=== PATIENT | female | born 1965 | race Caucasian/White ===

== ENCOUNTER → 2018-01-04 10:03 | Outpatient (CLI) | payer MEDICAID ==
[2015-07-21 09:43] VITALS: BMI 34.2
[~2018-01-04 10:03] MED LIST: ADVIL200 MG PO; BUSPAR 15 MG TA15 MG PO; CELEXA40 MG PO; DALIRESP500 MCG PO; FLUTICASONE PRO16 GM NASAL; HYDROCODONE-APA1 TAB PO; KLONOPIN0.5 MG PO; LEVAQUIN750 MG PO; MEDROL DOSE PACK4 MG PO; METOPROLOL TART50 MG PO; MUCINEX DM ER1 EAC1 PO; NYSTATIN ORAL SU5 ML PO; PERCOCET 10/3251 TA1 PO; PRILOSEC20 MG PO; PROAIR HFA8.5 GM INH; PROVENTIL/2.5 MG/3 M INH; SINGULAIR10 MG PO; SYMBICORT 16010.2 GM INH; ZESTRIL20 MG PO; ZOLOFT100 MG PO
== END | disposition home or self-care (01) ==
LOC: D.MRI 10:00
DX: M54.16 Radiculopathy, lumbar region (principal)

== ENCOUNTER 2019-03-09 18:52 | Inpatient (IN) | payer MEDICAID ==
[~2019-03-09] VITALS: Ht 172.7 cm; Wt 92.3 kg
[2019-03-09] MEDS ORDERED: LISINOPRIL20 MG PO (18:59)
[2019-03-09] MEDS ORDERED: METOPROLOL TART25 MG PO (18:59)
[2019-03-09] MEDS ORDERED: OMEPRAZOLE20 M1 PO (18:59)
[2019-03-09] MEDS ORDERED: NEURONTIN 300300 MG PO (18:59)
[2019-03-09 19:58] LABS: HEMATOCRIT 35.4 % (36.0-48.0); HEMOGLOBIN 11.7 g/dL (12-16); MCH 27.9 pg (26.0-34.0); MCHC 33.1 g/dL (31.0-37.0); MCV 84.5 fL (80.0-100.0); MEAN PLATELET VOLUME 11.4 fL (7.4-10.4); RBC 4.19 10x6/uL (4.00-5.40); RDW 14.2 % (11.5-14.5); WBC 19.7 10x3/uL (4.8-10.8)
[2019-03-09 19:59] LABS: PLATELET COUNT 324 10x3/uL (130-400)
[2019-03-09 20:02] LABS: APTT 22.4 SECONDS (22.8-39.4); INR 1.02 (0.85-1.17); PROTIME 12.9 SECONDS (11.6-15.0)
[2019-03-09 20:08] LABS: ALBUMIN 2.9 g/dL (3.4-5.0); ALKALINE PHOSPHATASE 124 U/L (46-116); ALT (SGPT) 14 U/L (10-68); BILIRUBIN - TOTAL 0.54 mg/dL (0.2-1.3); CALC OSMOLALITY 280 mosm/kg (275-300); CALCIUM 8.7 mg/dL (8.5-10.1); CARBON DIOXIDE 32.8 mmol/L (21.0-32.0); CHLORIDE - SERUM 98 mmol/L (98-107); GLUCOSE 110 mg/dL (74-106); POTASSIUM - SERUM 3.7 mmol/L (3.5-5.1); PROTEIN - SERUM 7.5 g/dL (6.4-8.2); SODIUM 139 mmol/L (136-145); UREA NITROGEN 18 mg/dL (7-18); eGFR NON AFRICAN AMERICAN 62 mL/min (90-120)
[2019-03-09 20:24] LABS: CKMB 0.8 U/L (0.0-3.6); CREATINE KINASE 45 UL (21-215); PRO BNP 4140 pg/mL (0-125)
[2019-03-09 20:26] LABS: TROPONIN-I 0.072 ng/mL (0.000-0.060)
[2019-03-09 20:32] LABS: LYMPHOCYTES 15 % (15-50); MONOCYTES 2 % (2-11); NEUTROPHILS 78 % (40-80); PLATELET ESTIMATE NORMAL
--- NOTE | 2019-03-09 20:45 | NUR ---
URINE SENT TO LAB
[2019-03-09 21:19] VITALS: BP 162/98
[2019-03-09 21:22] LABS: APPEARANCE CLEAR (CLEAR); COLOR YELLOW (YELLOW)
[2019-03-09 21:23] LABS: BILIRUBIN NEGATIVE (NEGATIVE); GLUCOSE NEGATIVE (NEGATIVE); KETONE NEGATIVE (NEGATIVE); NITRITE POSITIVE (NEGATIVE); PROTEIN 1+ mg/dL (NEGATIVE); SPECIFIC GRAVITY 1.015 (1.005-1.020); UROBILINOGEN NORMAL (NORMAL)
[2019-03-09 21:25] LABS: BACTERIA MANY /hpf (NEGATIVE); EPITHELIAL CELLS OCC /hpf (0-5); RED CELLS - URINE OCC /hpf (0-5); WHITE CELLS - URINE 0-5 /hpf (NEGATIVE)
--- NOTE | 2019-03-09 21:32 | NUR ---
PT GIVEN ICE CHIPS.
[2019-03-10 04:40] VITALS: BP 123/100; BMI 30.9
[2019-03-10 07:11] LABS: HEMATOCRIT 36.1 % (36.0-48.0); HEMOGLOBIN 11.7 g/dL (12-16); MCH 27.7 pg (26.0-34.0); MCHC 32.4 g/dL (31.0-37.0); MCV 85.3 fL (80.0-100.0); MEAN PLATELET VOLUME 11.3 fL (7.4-10.4); PLATELET COUNT 305 10x3/uL (130-400); RBC 4.23 10x6/uL (4.00-5.40); RDW 14.4 % (11.5-14.5)
[2019-03-10 07:19] LABS: ANION GAP 10.3 mmol/L (8-16); CALCIUM 8.9 mg/dL (8.5-10.1); CARBON DIOXIDE 36.4 mmol/L (21.0-32.0); CREATININE - SERUM 0.9 mg/dL (0.6-1.3); MAGNESIUM - SERUM 2.4 mg/dL (1.8-2.4); PHOSPHOROUS 3.4 mg/dL (2.5-4.9); POTASSIUM - SERUM 3.7 mmol/L (3.5-5.1)
[2019-03-10 07:45] LABS: LYMPHOCYTES 14 % (15-50); MONOCYTES 7 % (2-11); NEUTROPHILS 74 % (40-80); PLATELET ESTIMATE NORMAL
[2019-03-10 08:00] VITALS: BP 114/79
[2019-03-10 12:00] VITALS: BP 140/84
[2019-03-10 13:15] VITALS: BMI 30.9
[2019-03-10 14:51] VITALS: Ht 172.7 cm; Wt 92.3 kg
[2019-03-10 16:00] VITALS: BP 140/84
--- NOTE | 2019-03-10 19:15 | NUR ---
BEDSIDE REPORT RECEIVED FROM DAY SHIFT, PT CARE ASSUMED. INTRODUCED SELF AND WROTE NAME ON BOARD, PT SITTING UP IN BED ON THE PHONE, AAOX4, REPORTS CHRONIC ACHING THORACIC BACK PAIN OF 7 ON A SCALE OF 0-10. DENIES ANY OTHER NEEDS AT THIS TIME. BED IN LOWEST POSITION, SR X2, CALL LIGHT WITHIN REACH. WILL CONTINUE TO MONITOR.
[2019-03-10 20:00] VITALS: BP 128/85
[2019-03-11] VITALS: BP 122/79
[2019-03-11 04:30] VITALS: BP 148/78
[2019-03-11 06:39] LABS: ANION GAP 9.7 mmol/L (8-16); CALCIUM 8.9 mg/dL (8.5-10.1); CARBON DIOXIDE 37.8 mmol/L (21.0-32.0); MAGNESIUM - SERUM 2.1 mg/dL (1.8-2.4); PHOSPHOROUS 2.3 mg/dL (2.5-4.9); POTASSIUM - SERUM 3.5 mmol/L (3.5-5.1)
[2019-03-11 06:54] LABS: HEMATOCRIT 33.6 % (36.0-48.0); HEMOGLOBIN 10.4 g/dL (12-16); MCH 27.4 pg (26.0-34.0); MCV 88.4 fL (80.0-100.0); MEAN PLATELET VOLUME 11.2 fL (7.4-10.4); PLATELET COUNT 340 10x3/uL (130-400); RDW 14.2 % (11.5-14.5); WBC 20.1 10x3/uL (4.8-10.8)
[2019-03-11 08:20] VITALS: BP 136/69
[2019-03-11 08:20] LABS: LYMPHOCYTES 9 % (15-50); MONOCYTES 6 % (2-11); NEUTROPHILS 69 % (40-80); PLATELET ESTIMATE NORMAL
--- NOTE | 2019-03-11 08:55 | NUR ---
PT'S WEIGHT THIS AM WAS 203.3. TITRATED DOBUTAMINE DRIP FROM 15.7ML/HR TO 13.9ML/HR. WILL CONTINUE TO MONITOR.
--- NOTE | 2019-03-11 12:05 | NUR ---
ANANDA REDDING STARTED 20G IV IN RIGHT HAND. PT TAKEN FOR CT SCAN VIA BED
[2019-03-11 12:13] VITALS: BP 112/61
--- NOTE | 2019-03-11 12:40 | EC ---
PATIENT:STEVEN MIN DATE OF SERVICE: 03/09/19 SEX: F MEDICAL RECORD: [id number] DATE OF : [birth year] LOCATION:D.M2 D.210 AGE OF PATIENT: 53 ADMISSION DATE: 03/09/19 REFERRING PHYSICIAN: INTERPRETING PHYSICIAN: MARICEL ARGUELLES MD ECHOCARDIOGRAM REPORT ECHO CHARGES 4 ECHO COMPLETE Date: 03/10/19 CLINICAL DIAGNOSIS: ELEVATED BNP, SOB ECHOCARDIOGRAPHIC MEASUREMENTS (adult normal given) AC root (d.<3.7cm) 2.5 cm LV Septum d (<1.2 cm> 1.5 cm Valve Excursion 1.4 cm LV Septum (systole) 1.9 cm Left Atria (s.<4.0cm> 2.8 cm LVPW d(<1.2cm) 1.3 cm RV (d.<2.3cm) 3.1 cm LVPW (sytole) 1.4 cm LV diastole(<5.6CM) 5.6 cm MV E-F(>70mm/sec) cm LV systole 4.2 cm LVOT Diameter 1.7 cm MV exc.(>10mm) cm Est.ejection fraction (50-75%) % DOPPLER: LVIT cm/sec A 84 cm/sec E 55 cm/sec LA cm/sec RVSP 43.2 mmHg LVOT 187 cm/sec AOP1/2T m/s Asc. Ao 195 cm/sec RVOT 90 cm/sec RA cm/sec PA 137 cm/sec AV Gradient Peak 15.2 mmHg AV Mean 8.6 mmHg AV Area 2.2 cm MV Gradient Peak 5.6 mmHg MV Mean 3.2 mmHg MV Area cm COMMENTS: Gang Leader: Morelia DEL CASTILLO Pig Handler: 3 Dr. Zeng TAPE# PACS Pericardial Effusion N DATE OF SERVICE: Adequate 2D, color flow, spectral Doppler, and M-mode. LVH is present. LV internal dimension is normal. Wall motion is normal. EF is greater than or equal to 55%. Aortic valve is tricuspid. No evidence of stenosis by Doppler interrogation. Left atrium is normal. Mitral valve shows no prolapse. Trace MR. Right-sided chambers grossly normal. Trace TR. TRANSINT:[id number] Voice Confirmation ID: [id number] DOCUMENT ID: [id number] ECHOCARDIOGRAM REPORT [id number] STEVEN MIN MARICEL ARGUELLES MD at 1240 CC: [id number] DICTATION DATE: 03/10/19 1310 RETAIL GENERAL MANAGER: 03/10/19 1344 ADM IN [place] [id number] [place] [id number]
[2019-03-11 16:14] VITALS: BP 108/64
--- NOTE | 2019-03-11 16:43 | NUR ---
PT WANTING SOEMTHING FOR YEAT, TO HELP HER HAVE A BM, AND SOMETHINHG FOR ANXIETY. CALLED AND SPOKE WITH RONAN GIRON AND SHE STATES PT CAN HAVE MAGNESIUM CITRATE 300MG ONE TIME, FLUCONAZOLE 150MG DAILY FOR THREE DAYS, AND CLONAZEPAM 0.5MG BIDPRN. I VERBALIZED UNDERSTANDING.
--- NOTE | 2019-03-11 19:20 | NUR ---
EVENING ROUNDS COMPLETE. PT SITTING UP IN BED. NO SIGNS OF DISTRESS. PT DENIES ANY PAIN AT THIS TIME. VSS, AAOX4. CL IN REACH, BED IN LOWEST POSITION. CONT WITH POC.
[2019-03-11 20:00] VITALS: BP 120/66
[2019-03-12] VITALS: BP 102/58
[2019-03-12 04:00] VITALS: BP 104/71
[2019-03-12 06:24] LABS: ANION GAP 6.7 mmol/L (8-16); MAGNESIUM - SERUM 2.5 mg/dL (1.8-2.4); POTASSIUM - SERUM 3.9 mmol/L (3.5-5.1)
[2019-03-12 06:25] LABS: CARBON DIOXIDE 41.2 mmol/L (21.0-32.0); PHOSPHOROUS 3.2 mg/dL (2.5-4.9)
[2019-03-12 06:50] LABS: BASOPHILS 0.2 % (0-2); EOSINOPHILS 0 % (0-7); HEMATOCRIT 33.4 % (36.0-48.0); HEMOGLOBIN 10.1 g/dL (12-16); IMMATURE GRANULOCYTES 7.4 % (0-5); LYMPHOCYTES 7.6 % (15-50); MCH 27.4 pg (26.0-34.0); MCHC 30.2 g/dL (31.0-37.0); MEAN PLATELET VOLUME 11.2 fL (7.4-10.4); MONOCYTES 5.2 % (2-11); NEUTROPHILS 79.6 % (40-80); PLATELET COUNT 317 10x3/uL (130-400); RBC 3.68 10x6/uL (4.00-5.40); RDW 14.6 % (11.5-14.5)
[2019-03-12 06:51] LABS: MCV 90.8 fL (80.0-100.0)
--- NOTE | 2019-03-12 07:30 | NUR ---
A/A/OX4. DENIES ANY NEED FOR PAIN MED AT THIS TIME ALTHOUGH SHE IS HAVING PAIN IN HER BACK. NO REQUESTS VOICED AND ASSESSMENT COMPLETED. WILL CONITNUE POC. SL PATENT TO BOTH HANDS WITHOUT REDNESS OR EDEMA AT SITES.
[2019-03-12 09:17] VITALS: BP 142/73
[2019-03-12 12:29] VITALS: BP 80/50
--- NOTE | 2019-03-12 13:40 | NUR ---
I have reviewed this patient and I concur with the Shift Assessment completed by the Licensed Practical Nurse today this shift.
[2019-03-12 16:52] VITALS: BP 96/53
--- NOTE | 2019-03-12 19:05 | NUR ---
EVENING ROUNDS COMPLETE. PT SITTING UP IN BED. AAOX4, NO SIGNS OF DISTRESS. PT STATES SHE WILL WANT HER MORPHINE AND ZOFRAN WITH EVENING MEDS. PAIN LEVEL 5/10 CURRENTLY STATED. CL IN REACH, BED IN LOWEST POSITION. CONT WITH POC.
[2019-03-12 20:00] VITALS: BP 104/65
[2019-03-13] VITALS (7 sets, daily range): BP systolic 92–119; BP diastolic 49–68
[2019-03-13 04:39] LABS: HEMATOCRIT 35.8 % (36.0-48.0); HEMOGLOBIN 10.8 g/dL (12-16); MCH 27.6 pg (26.0-34.0); MCHC 30.2 g/dL (31.0-37.0); MCV 91.3 fL (80.0-100.0); MEAN PLATELET VOLUME 11.2 fL (7.4-10.4); PLATELET COUNT 282 10x3/uL (130-400); RBC 3.92 10x6/uL (4.00-5.40); RDW 15.1 % (11.5-14.5); WBC 14.9 10x3/uL (4.8-10.8)
[2019-03-13 04:55] LABS: ANION GAP 9.4 mmol/L (8-16); CALCIUM 7.5 mg/dL (8.5-10.1); CARBON DIOXIDE 36.1 mmol/L (21.0-32.0); POTASSIUM - SERUM 3.5 mmol/L (3.5-5.1)
[2019-03-13 04:56] LABS: CREATININE - SERUM 1.5 mg/dL (0.6-1.3)
[2019-03-13 05:18] LABS: EOSINOPHILS 1 % (0-7); LYMPHOCYTES 18 % (15-50); MONOCYTES 7 % (2-11); NEUTROPHILS 68 % (40-80); PLATELET ESTIMATE NORMAL
--- NOTE | 2019-03-13 17:07 | NUR ---
ALERT AND ORIENTED X4. SITTING UP IN BED REQUESTING PAIN MEDICATION FOR BACK PAIN. MORPHINE NO LONGER ON AUG. PATIENT DEMANDS DOCTOR TO BE CALLED FOR RENEWAL. NORCO 5mg Q6HPRN ORDERED VIA TELEPHONE PER BREE KIRAN. NORCO ADMINISTERED. NOTIFY BREE KIRAN OF LOW BP-95/49. DENIES ANY OTHER NEEDS AT THIS TIME. CONTINUE PLAN OF CARE AND SAFETY PRECAUTIONS.
--- NOTE | 2019-03-13 19:10 | NUR ---
PATIENT SITTING UP IN BED. NO COMPLAINTS AT THIS TIME. NO DISTRESS NOTED.
[2019-03-14] VITALS: BP 105/64
[2019-03-14 04:30] VITALS: BP 111/60
[2019-03-14 04:53] LABS: ANION GAP 5.3 mmol/L (8-16); CALCIUM 7.9 mg/dL (8.5-10.1); CARBON DIOXIDE 38.3 mmol/L (21.0-32.0); POTASSIUM - SERUM 3.6 mmol/L (3.5-5.1)
[2019-03-14 05:13] LABS: BASOPHILS 0.1 % (0-2); EOSINOPHILS 0.9 % (0-7); HEMATOCRIT 35.5 % (36.0-48.0); HEMOGLOBIN 10.7 g/dL (12-16); IMMATURE GRANULOCYTES 4.6 % (0-5); LYMPHOCYTES 18.9 % (15-50); MCH 27.5 pg (26.0-34.0); MCHC 30.1 g/dL (31.0-37.0); MCV 91.3 fL (80.0-100.0); MEAN PLATELET VOLUME 11.2 fL (7.4-10.4); MONOCYTES 5.2 % (2-11); NEUTROPHILS 70.3 % (40-80); PLATELET COUNT 290 10x3/uL (130-400); RBC 3.89 10x6/uL (4.00-5.40); RDW 15.2 % (11.5-14.5)
--- NOTE | 2019-03-14 05:54 | NUR ---
I have reviewed this patient and I concur with the Shift Assessment completed by the Licensed Practical Nurse today this shift.
--- NOTE | 2019-03-14 07:25 | NUR ---
RECIEVED REPORT. ALERT AND ORIENTED X4. SITTING UP IN BED WATCHING TV. REQUEST PAIN MEDICATION. INFORM NOT TIME FOR MEDICATION TO BE ADMINISTERED. TOLD IN REPORT BIPAP WAS REFUSED. O2 @ 4L NC. SINUS RHYTHM ON TELEMETRY. CONTINUE PLAN OF CARE AND SAFETY PRECAUTIONS.
[2019-03-14 08:08] VITALS: BP 114/72
[2019-03-14 11:54] VITALS: BP 126/65
--- NOTE | 2019-03-14 13:49 | NUR ---
Nutrition Follow-up: Diet: Cardiac PO intake: 75-100% Wt: 203# Last BM: 03/12 Labs reviewed Meds reviewed Continue current diet as tolerated. RD following.
--- NOTE | 2019-03-14 15:43 | NUR ---
ALERT AND ORIENTED X4. EXPRESSES WANTING TO GO HOME. EXPLAIN PLANS TO DC TOMORROW. PATIENT STATES, "NO, YOU GO CALL THAT DOCTOR BACK AND TELL HIM I NEED TO LEAVE TODAY." NOTIFY OF PATIENT REQUEST. CONTINUE PLAN OF CARE AND SAFETY PRECAUTIONS.
--- NOTE | 2019-03-14 16:49 | MORECARE ---
CASE MANAGEMENT DISCHARGE SUMMARY PATIENT: STEVEN MIN UNIT: [id number] ADM DATE: 03/09/19 AGE: 53 : 67 SEX: F ROOM/BED: D.2100 AUTHOR: AUDI LEWIS PHYSICIAN: REFERRING PHYSICIAN: TIESHA GUAMAN MD DATE OF SERVICE: 03/14/19 Discharge Plan Patient Name: STEVEN MIN [facility] [facility] 1965 Planned Disposition: Anticipated Discharge Date: Discharge Date: Expected LOS: Initial Reviewer: [email or web address] Initial Review Date: 03/14/2019 Generated: 03/14/19 5:48 pm Comments DCP- Discharge Planning Updated by SOILA: Hardy Silverman on 03/14/19 3:[address] Patient Name: STEVEN MIN Encounter No: [id number] : 1965 Primary Insurance: [place] [employer] [place] Anticipated DC Date: Planned Disposition: DISCHARGE PLANNING note: CM RECEIVED OXYGEN TESTING INDICATING PTPT ROOM AIR SATURATION IS 87% ON ROOM AIR WITH RECOVER OF 94% ON 3 LITERS NASAL CANNULA. TESTING PLACED IN CHART. IF PT IS DISCHARGED HOME WITHIN THE NEXT 48 HOURS, CM WILL NEED TO ARRANGE HOME AND PORTABLE OXYGEN WITH RECEIPT OF PHYSICIAN ORDERS. CM TO MEET WITH PT SOON POSSIBLE TO ASSESS FOR DISCHARGE NEEDS AND PLANNING. Hardy Silverman, CASE MANAGEMENT Patient Name: STEVEN MIN Page [phone] at 1649 All edits/amendments must be made on the electronic document DICTATION DATE: 03/14/191647 CLINICAL REHAB SPECIALIST: BILLY 03/14/191647 RPT#: [id number] DC DATE: STATUS: ADM IN [facility] [address] [facility] [place] [address] END OF REPORT
--- NOTE | 2019-03-14 17:23 | NUR ---
ALERT AND ORIENTED X4. SITTING UP IN BED. APPROVED FOR HOME OXYGEN PER WALK STUDY. DENIES ANY NEEDS. CONTINUE PLAN OF CARE AND SAFETY PRECAUTIONS.
[2019-03-14 20:00] VITALS: BP 120/72
[2019-03-15 00:30] VITALS: BP 102/64
--- NOTE | 2019-03-15 03:56 | NUR ---
I have reviewed this patient and I concur with the Shift Assessment completed by the Licensed Practical Nurse today this shift.
[2019-03-15 04:30] VITALS: BP 108/75
[2019-03-15 07:35] VITALS: BP 104/68
[2019-03-15 11:07] VITALS: BP 109/64
--- NOTE | 2019-03-15 11:46 | MORECARE ---
CASE MANAGEMENT DISCHARGE SUMMARY PATIENT: STEVEN MIN UNIT: [id number] ADM DATE: 03/09/19 AGE: 53 : 67 SEX: F ROOM/BED: D.2105 AUTHOR: AUDI LEWIS PHYSICIAN: REFERRING PHYSICIAN: TIESHA GUAMAN MD DATE OF SERVICE: 03/15/19 Discharge Plan Patient Name: STEVEN MIN [facility] [facility] 1965 Planned Disposition: Anticipated Discharge Date: Discharge Date: Expected LOS: Initial Reviewer: [email or web address] Initial Review Date: 03/14/2019 Generated: 03/15/19 12:46 pm Comments DCP- Discharge Planning Updated by SOILA: Hardy Silverman on 03/14/19 3:[address] Patient Name: STEVEN MIN Encounter No: [id number] : 1965 Primary Insurance: [place] [employer] [place] Anticipated DC Date: Planned Disposition: DISCHARGE PLANNING note: CM RECEIVED OXYGEN TESTING INDICATING PTPT ROOM AIR SATURATION IS 87% ON ROOM AIR WITH RECOVER OF 94% ON 3 LITERS NASAL CANNULA. TESTING PLACED IN CHART. IF PT IS DISCHARGED HOME WITHIN THE NEXT 48 HOURS, CM WILL NEED TO ARRANGE HOME AND PORTABLE OXYGEN WITH RECEIPT OF PHYSICIAN ORDERS. CM TO MEET WITH PT SOON POSSIBLE TO ASSESS FOR DISCHARGE NEEDS AND PLANNING. Hardy Silverman, CASE MANAGEMENT External Providers External Provider: [email or web address] Next Contact Date: 03/15/2019 Service Request Date: Service Type: Resolution: Reviewer: Comments: Last DP export: 03/14/19 3:49 p Patient Name: STEVEN MIN Page [id number] at 1146 All edits/amendments must be made on the electronic document DICTATION DATE: 03/15/19 1146 METAL DRILLING MACHINE OPERATOR: BILLY 03/15/19 1146 RPT#: [id number] DC DATE: STATUS: ADM IN [facility] [address] [facility] [place] [address] END OF REPORT
--- NOTE | 2019-03-15 12:10 | MORECARE ---
CASE MANAGEMENT DISCHARGE SUMMARY PATIENT: STEVEN MIN UNIT: [id number] ADM DATE: 03/09/19 AGE: 53 : 66 SEX: F ROOM/BED: D.2104 AUTHOR: JOSHUA,DOC PHYSICIAN: REFERRING PHYSICIAN: TIESHA GUAMAN MD DATE OF SERVICE: 03/15/19 Discharge Plan Patient Name: STEVEN MIN Facility: [facility]:[place] : 1965 Planned Disposition: Home Anticipated Discharge Date: 03/15/19 Discharge Date: Expected LOS: 6 Initial Reviewer: [id number] Initial Review Date: 03/14/2019 Generated: 03/15/19 1:10 pm Comments DCP- Discharge Planning Updated by [id number]: Hardy Silverman on 03/14/19 3:[address] Patient Name: STEVEN MIN Encounter No: [id number] : 1965 Primary Insurance: [place] [employer] [place] Anticipated DC Date: Planned Disposition: DISCHARGE PLANNING note: CM RECEIVED OXYGEN TESTING INDICATING PTPT ROOM AIR SATURATION IS 87% ON ROOM AIR WITH RECOVER OF 94% ON 3 LITERS NASAL CANNULA. TESTING PLACED IN CHART. IF PT IS DISCHARGED HOME WITHIN THE NEXT 48 HOURS, CM WILL NEED TO ARRANGE HOME AND PORTABLE OXYGEN WITH RECEIPT OF PHYSICIAN ORDERS. CM TO MEET WITH PT SOON POSSIBLE TO ASSESS FOR DISCHARGE NEEDS AND PLANNING. Hardy Silverman, CASE MANAGEMENT DCPIA - Discharge Planning Initial Assessment Updated by [id number]: Hardy Silverman on 03/15/19 12:10 pm * Is the patient Alert and Oriented? Yes * How many steps to enter\exit or inside your home? * PCP DR. MARTINEZ * Pharmacy [facility] * Preadmission Environment Home with Family * ADLs Independent * Equipment BIPAP Nebulizer * Other Equipment UNKNOWN MEDICAL EQUIPMENT [employer], [employer] OR [email or web address] * List name and contact numbers for known caregivers / representatives who currently or will assist patient after discharge: ANJEL TIWARI, SPOUSE, * Verbal permission to speak to the caregivers and representatives has been obtained from the patient. N/A * Community resources currently utilized None * Please name any agencies selected above. NONE * Additional services required to return to the preadmission environment? No * Can the patient safely return to the preadmission environment? Yes * Has this patient been hospitalized within the prior 30 days at any hospital? No Coverage Notice Reviewer: [id number] Alfredo Silverman Notice Issued Date-Time: 03/15/2019 11:05 Notice Type: IM Discharge Notice Notice Delivered To: Patient Relationship to Patient: Associate Professor Of Chemistry Name: Delivery Method: HAND - Hand Delivered Divina Days: Prior Verbal Notification: Recipient Understood Notice: Yes Recipient Signature: Yes Med Rec Note Co-signed by Attending: Coverage Notice Comment: NO MEDICAL EQUIPMENT PROVIDER PREFERENCE Last DP export: 03/15/19 10:46 a Patient Name: STEVEN MIN Page [phone] at 1210 All edits/amendments must be made on the electronic document DICTATION DATE: 03/15/19 121 PROBE OPERATOR: BILLY 03/15/19 1210 RPT#: [id number] DC DATE: STATUS: ADM IN [facility] [address] [place] [address] END OF REPORT
--- NOTE | 2019-03-15 12:19 | MORECARE ---
CASE MANAGEMENT DISCHARGE SUMMARY PATIENT: STEVEN MIN UNIT: [id number] ADM DATE: 03/09/19 AGE: 53 : 67 SEX: F ROOM/BED: D.2105 AUTHOR: JOSHUA,DOC PHYSICIAN: REFERRING PHYSICIAN: TIESHA GUAMAN MD DATE OF SERVICE: 03/15/19 Discharge Plan Patient Name: STEVEN MIN Facility: [facility]:[place] : 1965 Planned Disposition: Home Anticipated Discharge Date: 03/15/19 Discharge Date: Expected LOS: 6 Initial Reviewer: [id number] Initial Review Date: 03/14/2019 Generated: 03/15/19 1:18 pm Comments DCP- Discharge Planning Updated by [email or web address]: Hardy Silverman on 03/15/19 11:[address] Patient Name: STEVEN MIN Admission Status: ER Accout number: [id number] Admission Date: 03-09-2019 : 1965 Admission Diagnosis:SHORTNESS OF BREATH Attending: TIESHA GUAMAN Current LOS: 6 Anticipated DC Date: 03-15-2019 Planned Disposition: Home Primary Insurance: [employer] PRIVATE OPTIONS KIRBY Discharge Planning Comments: CM MET WITH PT IN ROOM TO DISCUSS DISCHARGE PLANNING AND NEEDS. PT REPORTS LIVING AT HOME INDEPENDENTLY WITH HER BROTHER IN LAW AND OTHER FAMILY MEMBERS. PT HAS NO MEDICAL EQUIPMENT AND NO OUTSIDE SERVICES ASSISTING IN THE HOME. CM DISCUSSED AVAILABILITY OF HOME HEALTH, REHAB SERVICES AND MEDICAL EQUIPMENT. PT WILL ACCEPT OXYGEN. CM PROVIDED LIST OF LOCAL PROVIDERS, PT HAS NO CHOICE OF PROVIDER, CHOICE SIGNED. PT REPORTS HER BROTHER IN LAW WILL PICK HER UP FOR DISCHARGE HOME. CM CALLED [facility], , SPOKE TO CHRISTI AND PROVIDED REFERRAL INFORMATION. CM FAXED REFERRAL TO [facility], . CHRISTI ADVISED THEY WILL DELIVER PORTABLE OXYGEN TO HOSPITAL TODAY AND WILL ARRANGE HOME OXYGEN WHEN PT ARRIVES AT HOME AFTER DISCHARGE. PLANT WIRE CHIEF NURSE NOTIFIED. 3 Year Olds Preschool Teacher: Hardy Silverman DCP- Discharge Planning Updated by [id number]: Hardy Silverman on 03/14/19 3:[address] Patient Name: STEVEN MIN Encounter No: [id number] : 1965 Primary Insurance: [place] [employer] [place] Anticipated DC Date: Planned Disposition: DISCHARGE PLANNING note: CM RECEIVED OXYGEN TESTING INDICATING PTPT ROOM AIR SATURATION IS 87% ON ROOM AIR WITH RECOVER OF 94% ON 3 LITERS NASAL CANNULA. TESTING PLACED IN CHART. IF PT IS DISCHARGED HOME WITHIN THE NEXT 48 HOURS, CM WILL NEED TO ARRANGE HOME AND PORTABLE OXYGEN WITH RECEIPT OF PHYSICIAN ORDERS. CM TO MEET WITH PT SOON POSSIBLE TO ASSESS FOR DISCHARGE NEEDS AND PLANNING. Hardy Silverman, CASE MANAGEMENT DCPIA - Discharge Planning Initial Assessment Updated by SOILA: Hardy Silverman on 03/15/19 12:10 pm * Is the patient Alert and Oriented? Yes * How many steps to enter\exit or inside your home? * PCP DR. MARTINEZ * Pharmacy [facility] * Preadmission Environment Home with Family * ADLs Independent * Equipment BIPAP Nebulizer * Other Equipment UNKNOWN MEDICAL EQUIPMENT [employer], [employer] OR [employer] * List name and contact numbers for known caregivers / representatives who currently or will assist patient after discharge: ANJEL TIWARI, SPOUSE, * Verbal permission to speak to the caregivers and representatives has been obtained from the patient. N/A * Community resources currently utilized None * Please name any agencies selected above. NONE * Additional services required to return to the preadmission environment? No * Can the patient safely return to the preadmission environment? Yes * Has this patient been hospitalized within the prior 30 days at any hospital? No Coverage Notice Reviewer: [id number] - Hardy Silverman Notice Issued Date-Time: 03/15/2019 11:05 Notice Type: IM Discharge Notice Notice Delivered To: Patient Relationship to Patient: Pressure Sealer And Tester Name: Delivery Method: HAND - Hand Delivered Divina Days: Prior Verbal Notification: Recipient Understood Notice: Yes Recipient Signature: Yes Med Rec Note Co-signed by Attending: Coverage Notice Comment: NO MEDICAL EQUIPMENT PROVIDER PREFERENCE Last DP export: 03/15/19 11:10 a Patient Name: STEVEN MIN Page 15788 at 1219 All edits/amendments must be made on the electronic document DICTATION DATE: 03/15/191217 ATTENDING PHYSICIAN: BILLY 03/15/198 RPT#: [id number] DC DATE: STATUS: ADM IN [facility] [address] [place] [address] END OF REPORT
[2019-03-15 12:50] LABS: HEMATOCRIT 33.5 % (36.0-48.0); HEMOGLOBIN 10.2 g/dL (12-16); IMMATURE GRANULOCYTES 4.1 % (0-5); MCH 27.6 pg (26.0-34.0); MCHC 30.4 g/dL (31.0-37.0); MCV 90.5 fL (80.0-100.0); MEAN PLATELET VOLUME 11.1 fL (7.4-10.4); PLATELET COUNT 234 10x3/uL (130-400); RDW 15.1 % (11.5-14.5); WBC 11.5 10x3/uL (4.8-10.8)
[2019-03-15 12:59] LABS: CALCIUM 8.3 mg/dL (8.5-10.1); CARBON DIOXIDE 33.7 mmol/L (21.0-32.0); CHLORIDE - SERUM 105 mmol/L (98-107); GLUCOSE 113 mg/dL (74-106); SODIUM 144 mmol/L (136-145)
[2019-03-15 13:01] LABS: CALC OSMOLALITY 287 mosm/kg (275-300); CREATININE - SERUM 0.7 mg/dL (0.6-1.3); UREA NITROGEN 13 mg/dL (7-18); eGFR NON AFRICAN AMERICAN > 90 mL/min (90-120)
[2019-03-15 13:16] LABS: EOSINOPHILS 3 % (0-7); LYMPHOCYTES 21 % (15-50); MONOCYTES 3 % (2-11); NEUTROPHILS 70 % (40-80)
[2019-03-15] MEDS ORDERED: LEVOFLOXACIN500 MG PO (13:39)
[2019-03-15] MEDS ORDERED: MUCINEX DM ER1 EAC1 PO (13:42)
[2019-03-15] MEDS ORDERED: SYMBICORT 16010.2 GM INH (13:42)
[2019-03-15] MEDS ORDERED: SINGULAIR10 MG PO (13:42)
--- NOTE | 2019-03-15 14:54 | NUR ---
PATIENT TO NOT TAKE A FLU SHOT AT THIS TIME. TO FOLLOW UP WITH DR MARTINEZ AT FOLLOW UP.
--- NOTE | 2019-03-15 16:45 | NUR ---
ALERT AND ORIENTED X4. SITTING UP IN BED. DISCHARGE INSTRUCTIONS GIVEN VERBALLY AND WRITTEN. DISCHARGE PAPERS SIGNED ON CHART. DC LT HAND IV TIP INTACT. AWAITING RIDE FOR DISCHARGE. CONTINUE PLAN OF CARE AND SAFETY PRECAUTIONS. PORTABLE OXYGEN DELIVERED TO ROOM.
--- NOTE | 2019-03-15 17:08 | NUR ---
RIDE ARRIVES. AMBULATES TO RIDE PER PATIENT REQUEST. REMAINS FREE FROM INJURY.
== END 2019-03-15 17:09 | disposition home or self-care (01) | DRG 193 ==
LOC: D.ER 18:52 → D.M2 22:57
PROVIDERS: Emergency Medicine; Family Medicine; ADMIT Internal Medicine Nephrology; ATTEND Internal Medicine Nephrology
DX: J18.9 Pneumonia, unspecified organism (principal); J96.22 Acute and chronic respiratory failure with hypercapnia; J96.21 Acute and chronic respiratory failure with hypoxia; J44.1 Chronic obstructive pulmonary disease with (acute) exacerbation; N39.0 Urinary tract infection, site not specified; F17.213 Nicotine dependence, cigarettes, with withdrawal; J44.0 Chronic obstructive pulmonary disease with (acute) lower respiratory infection; F41.9 Anxiety disorder, unspecified; F20.9 Schizophrenia, unspecified; F32.9 Major depressive disorder, single episode, unspecified; J20.9 Acute bronchitis, unspecified; I11.0 Hypertensive heart disease with heart failure; I50.9 Heart failure, unspecified